=== PATIENT | male | born 1995 | race Caucasian/White ===

== ENCOUNTER 2020-05-07 15:11 | Observation (INO) | payer BC, MEDICAID ==
[~2020-05-07] VITALS: Ht 182.9 cm; Wt 81.8 kg
[2020-05-07] MEDS ORDERED: HYDROcodone/acetaminophen 10/325mg tab PO STA (15:20)
[2020-05-07] MEDS ORDERED: ondansetron/PF 4mg/2ml inj IV ONE (15:50)
[2020-05-07] MEDS ORDERED: NO HOME MEDS (16:05)
[2020-05-07] MEDS ORDERED: magnesium hydroxide 30ml (MOM) UD suspension PO PRN (16:10)
[2020-05-07] MEDS ORDERED: mag hydrox/Alum hydrox/simeth 30ml oral suspension PO PRN (16:10)
[2020-05-07] MEDS ORDERED: morphine 2 MG/ML inj. syringe IV PRN (16:10)
[2020-05-07] MEDS ORDERED: HYDROcodone/acetaminophen 5mg/325mg tablet PO PRN (16:10)
[2020-05-07] MEDS ORDERED: ondansetron/PF 4mg/2ml inj IV PRN (16:10)
[2020-05-07] MEDS ORDERED: acetaminophen 325mg tablet PO PRN (16:10)
[2020-05-07] MEDS: morphine 4 MG/ML inj SYRINge IV PRN ×2 (16:22→17:14)
[2020-05-07] MEDS: normal saline 1000ml 1,000 ML IV SCH (16:22)
[2020-05-07 19:00] LABS: BASOPHILS % (AUTO) 0.2 % (0-1); EOSINOPHILS % (AUTO) 0.1 % (0-6); HEMATOCRIT 42.8 % (42.0-52.0); HEMOGLOBIN 14.5 g/dl (14.0-17.9); LYMPHOCYTES # (AUTO) 1.9 X10'3 (1.1-4.8); LYMPHOCYTES % (AUTO) 12.2 % (21-51); MEAN CORPUSCULAR HEMOGLOBIN 29.3 PG (27.0-31.0); MEAN CORPUSCULAR VOLUME 86.3 FL (78-98); MEAN PLATELET VOLUME 7.3 FL (7.4-10.4); MONOCYTES # (AUTO) 0.9 X10'3 (0-0.9); NEUTROPHILS # (AUTO) 12.5 X10'3 (1.8-7.7); NEUTROPHILS % (AUTO) 81.5 % (42-75); PLATELET COUNT 233 X10'3 (140-440); RED BLOOD COUNT 4.96 X10'6 (4.70-6.10); RED CELL DISTRIBUTION WIDTH 12.7 % (11.5-14.5); WHITE BLOOD COUNT 15.3 X10'3 (4.5-11.0)
[2020-05-07 19:07] LABS: ALBUMIN 4.5 G/DL (3.4-5.0); ANION GAP 13 (8-16); BLOOD UREA NITROGEN 10 MG/DL (7-18); BUN/CREATININE RATIO 14.5 (5.4-32.0); CALCIUM 9.5 MG/DL (8.5-10.1); CHLORIDE 106 MMOL/L (99-107); CREATININE 0.69 MG/DL (0.60-1.10); GLUCOSE 80 MG/DL (70-104); POTASSIUM 3.8 MMOL/L (3.5-5.1); SODIUM 143 MMOL/L (135-145); TOTAL CARBON DIOXIDE 24.1 MMOL/L (24-32); eGFR > 90 ML/MIN
[2020-05-07] MEDS: HYDROcodone/acetaminophen 10/325mg tab PO PRN (20:57)
--- NOTE | 2020-05-07 21:15 | NUR ---
RECEIVED REPORT FROM IHSAN EATON. PATIENT TO FLOOR AT 1515 IN STABLE CONDITION
[2020-05-08] VITALS (15 sets, daily range): BP systolic 117–143; BP diastolic 65–92
[2020-05-08] MEDS: normal saline 1000ml 1,000 ML IV SCH ×2 (05:14→13:11)
--- NOTE | 2020-05-08 06:10 | NUR ---
RECEIVED REPORT FROM UMA LOFTON
--- NOTE | 2020-05-08 06:32 | NUR ---
Patient in room ORTHO 4017. I have received report from Anali EATON and had the opportunity to ask questions and assume patient care.
[2020-05-08] MEDS: HYDROcodone/acetaminophen 10/325mg tab PO PRN ×2 (08:58→15:06)
--- NOTE | 2020-05-08 09:05 | NUR ---
Attempted to call Dr. Mcbride regarding pre-op antibiotics for this patient. Left a voicemail.
[2020-05-08] MEDS ORDERED: bacitracin 15gm ointment TP ONE (10:25)
[2020-05-08] MEDS ORDERED: ceFAZolin 1000mg inj ONE (10:25)
--- NOTE | 2020-05-08 11:11 | NUR ---
Problems reprioritized. Patient report given to questions answered & plan of care reviewed with Rubin EATON.
[2020-05-08] MEDS ORDERED: sevoflurane 250ml liquid IH ONE (11:54)
[2020-05-08] MEDS ORDERED: fentaNYL/PF 50MCG/1 ML 2ML syringe ONE (12:00)
[2020-05-08] MEDS ORDERED: midazolam 1 mg/ML 2ml injection ONE ×2 (12:03→12:04)
[2020-05-08] MEDS ORDERED: propofol inj 20 ML IV ONE (12:05)
[2020-05-08] MEDS ORDERED: ROPIVAcaine 0.5% (5mg/ml) 30ml vial ONE (12:05)
[2020-05-08] MEDS ORDERED: morphine 4 MG/ML inj SYRINge IV PRN (12:50)
[2020-05-08] MEDS ORDERED: ondansetron/PF 4mg/2ml inj IV PRN (12:50)
[2020-05-08] MEDS ORDERED: proCHLORperazine 10 MG/2 ml inj IV PRN (12:50)
[2020-05-08] MEDS ORDERED: ringers solution, lacted 1,000 ML IV SCH (12:50)
[2020-05-08] MEDS ORDERED: meperidine/PF 25mg/ml syringe IV PRN ×2 (12:50)
[2020-05-08] MEDS ORDERED: morphine 2 MG/ML inj. syringe IV PRN (12:50)
[2020-05-08] MEDS ORDERED: meperidine/PF 25mg/ml syringe ONE (13:55)
[2020-05-08] MEDS: meperidine/PF 25mg/ml syringe IV PRN ×3 (14:10→15:23)
--- NOTE | 2020-05-08 14:10 | NUR ---
Received from OR via BED, accompanied by Anesthesiologist --Pancho - and report given by Anesthesiolgist. PATIENT A&OX4, DENIES PAIN, V/S WNL, NEUROVASCULAR CHECKS INTACT, 20G PIV RUE, SCD ON, DRESSING TO LEFT ARM/ SHOULDER CDI WITH SLING ON.
--- NOTE | 2020-05-08 14:20 | NUR ---
Patient in room ORTHO 4017. I have received report from Rubin EATON and had the opportunity to ask questions and assume patient care.
[2020-05-08] MEDS ORDERED: HYDR-3965 PO (14:35)
--- NOTE | 2020-05-08 14:50 | NUR ---
PATIENT A&OX4, DENIES PAIN, V/S WNL, NEUROVASCULAR CHECKS INTACT, 20G PIV RUE, SCD ON, DRESSING TO LEFT SHOULDER CDI WITH SLING , PATIENT TAKEN TO 4017 WITH ALL BELONGINGS AND HOOKED UP TO MONITORS IN ROOM AND REPORT GIVEN TO RN WHO HAS TAKEN OVER PATIENT CARE.
--- NOTE | 2020-05-08 14:52 | NUR ---
pt arrived on floor on ortho bed
--- NOTE | 2020-05-08 15:31 | NUR ---
Page Sent promotional table spacer PAGER ID: [phone] MESSAGE: [id number] [place] Mcbride cleared for d/c, just need orders from you. Thanks sweta grullon [phone]
--- NOTE | 2020-05-08 17:57 | NUR ---
Went over discharge instructions with the patient. Advised where to seek out primary care for follow up and to follow up with Dr. Mcbride in one week, number for the office to Dr. Mcbride provided to him. Mary mazariegos sent with him as well. Educated patient on signs and symptoms of infection and or DVT and to come to the emergency room if he shows any symptoms of these. 20 gauge removed from his left forearm, cannula intact no s/s of phlebitis. Left extremity is still numb and he is unable to wiggle his fingers. Educated that this is to be expected and to take pain medication when sensation returns.
--- NOTE | 2020-05-08 17:58 | NUR ---
nightshift is here and espinoza sol is to give reported
--- NOTE | 2020-05-08 18:14 | NUR ---
Problems reprioritized. Patient report given, questions answered & plan of care reviewed with Jennifer EATON.
--- NOTE | 2020-05-08 18:16 | NUR ---
Patient escorted out in wheelchair with belongings and discharge instructions.
== END 2020-05-08 18:16 | disposition home or self-care (01) ==
LOC: ER 15:12 → ED HOLD 16:10 → ORTHO 4S 21:15
PROVIDERS: ADMIT Family Medicine; ATTEND Family Medicine
DX: S42.302A Unspecified fracture of shaft of humerus, left arm, initial encounter for closed fracture (principal); Z20.822 Contact with and (suspected) exposure to COVID-19; F12.90 Cannabis use, unspecified, uncomplicated; V00.311A Fall from snowboard, initial encounter; Y93.23 Activity, snow (alpine) (downhill) skiing, snowboarding, sledding, tobogganing and snow tubing; Y92.89 Other specified places as the place of occurrence of the external cause
CPT/HCPCS: 24516; 36415; 73060; 80048; 82948; 85025; 85610; 87081; 87635; 96361; 96374; 96375; 96376; 99284; C1713; G0378; J0690; J2175; J2250; J2270; J2405; J2704; J3010; J7030; J7120; 76000; A4215; A4618; A7000; J2795

== ENCOUNTER 2020-05-08 23:19 | Emergency (ER) | payer BC ==
[~2020-05-08] VITALS: Ht 182.9 cm; Wt 81.8 kg
[~2020-05-08 23:19] MED LIST: HYDR-3965 PO; NO HOME MEDS
[2020-05-08 23:23] VITALS: BP 154/76
--- NOTE | 2020-05-09 01:03 | NUR ---
CMS intact, 2+ radial pulse to affected arm. S/P surgery and was unsure if swelling to his left fingers were OK. There is a little swelling, capillary refill spontaneous. He is in a sling. Did have surgery today, had a scott placed into left humerous. Dressing D/I.
[2020-05-09] MEDS ORDERED: ibuprofen tablet 400 MG TABLET PO ONE (01:20)
[2020-05-09] MEDS ORDERED: ibuprofen 200mg tablet PO ONE (01:20)
[2020-05-09] MEDS ORDERED: HYDROcodone/acetaminophen 5mg/325mg tablet PO ONE (01:20)
== END 2020-05-09 01:35 | disposition home or self-care (01) ==
LOC: ER 23:20
DX: G89.18 Other acute postprocedural pain (principal); M25.532 Pain in left wrist; Z79.899 Other long term (current) drug therapy
CPT/HCPCS: 99283